=== PATIENT | female | born 1935 | race Caucasian/White ===

== ENCOUNTER 2021-02-09 14:32 | Emergency (ER) | payer MEDICARE ==
[~2021-02-09] VITALS: Ht 165.1 cm; Wt 65.8 kg
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
--- NOTE | 2021-02-09 15:49 | NUR ---
AT BEDSIDE FOR EVAL.
--- NOTE | 2021-02-09 15:55 | NUR ---
PT IS WHEELED TO RADIOLOGY FOR XRAY AND CT SCAN.
[2021-02-09] MEDS ORDERED: ONDA4TAB11 PO (17:06)
--- NOTE | 2021-02-09 17:55 | NUR ---
Patient discharged to home in stable condition. Written and verbal after care instructions given. Patient verbalizes understanding of instruction.
[2021-02-09 17:56] VITALS: BP 118/58
== END 2021-02-09 17:57 | disposition home or self-care (01) ==
LOC: ER 14:36
DX: S06.0X9A Concussion with loss of consciousness of unspecified duration, initial encounter (principal); S80.02XA Contusion of left knee, initial encounter; Z88.2 Allergy status to sulfonamides; V43.52XA Car driver injured in collision with other type car in traffic accident, initial encounter; Y93.89 Activity, other specified; Y92.410 Unspecified street and highway as the place of occurrence of the external cause; Y99.8 Other external cause status
CPT/HCPCS: 70450-TC; 71045-TC; 72125-TC; 73564-TC